=== PATIENT | female | born 1985 | race Caucasian/White ===

== ENCOUNTER 2017-06-08 00:04 | Emergency (ER) | payer MEDICAID ==
[2017-06-08] MEDS: IBUPROFEN 600 MG TABLET PO ONE (00:23)
--- NOTE | 2017-06-08 00:23 | Emergency Department Record ---
History of Present Illness - General Chief complaint: Pain Stated complaint: RIGHT WRIST INJURY Time Seen by Provider: 06/08/17 00:09 Source: Patient Mode of Arrival: Ambulatory Limitations: No limitations - History of Present Illness Initial comments: 31 yo female presents to ED for evaluation of right wrist pain. Patient reports that she was locked out of her home this evening, used her wrist to pound on the door to alert her SO that she was locked out resulting in injury to the wrist. Patient denies other injury, report pain and swelling to the lateral wrist. Patient denies health problems at her baseline, denies taking anything for pain [employer]. MD Complaint: Extremity pain Onset/Timin -: Hour(s) Location: Right, Arm Severity scale (1-10): 9 Quality: Aching, Sharp Consistency: Constant Improves with: Rest Worsens with: Exertion, Palpation - Related Data Home Medications Medication Instructions Recorded Confirmed Last Taken No Home Med [NO HOME MEDS] 06/08/17 06/08/17 Unknown Allergies Allergy/AdvReac Type Severity Reaction Status Date / Time No Known Drug Allergies Allergy Verified 06/08/17 00:07 Travel Screening - Travel/Exposure Within Last 30 Days Have you traveled within the last 30 days?: No - Travel Symptoms Symptom Screening: None Review of Systems Constitutional: Denies: Chills, Fever, Malaise, Night sweats Eyes: Denies: Eye discharge, Eye pain ENT: Denies: Congestion, Ear pain, Epistaxis Respiratory: Denies: Cough, Dyspnea Cardiovascular: Denies: Chest pain, Dyspnea on exertion Endocrine: Denies: Fatigue, Heat or cold intolerance Gastrointestinal: Denies: Abdominal pain, Nausea, Vomiting Genitourinary: Denies: Incontinence, Retention Musculoskeletal: Reports: Arthralgia, Joint swelling. Denies: Back pain, Gout Skin: Denies: Bruising, Change in color Neurological: Denies: Abnormal gait, Confusion, Headache, Seizure Psychiatric: Denies: Anxiety Hematological/Lymphatic: Denies: Anemia, Blood Clots Past Medical History - SOCIAL HISTORY Smoking Status: Current every day smoker - RESPIRATORY Hx Respiratory Disorders: No - CARDIOVASCULAR Hx Cardio Disorders: No - NEURO Hx Neuro Disorders: No - GI Hx GI Disorders: No - Hx Genitourinary Disorders: Yes Comment:: Dysmenorrhea - ENDOCRINE Hx Endocrine Disorders: No - MUSCULOSKELETAL Hx Musculoskeletal Disorders: No - PSYCH Hx Psych Problems: No - HEMATOLOGY/ONCOLOGY Hx Hematology/Oncology Disorders: No Family Medical History Any Significant Family History?: Yes Hx HTN: Father, Mother Hx Kidney Disease: Grandparents *Kidney Comment: Polycystic kidneys Physical Exam - General General Appearance: Alert, Oriented x3, Cooperative, Mild distress, Other (Well appearing, drinking coffee) Limitations: No limitations - Head Head exam: Atraumatic, Normocephalic, Normal inspection Head exam detail: negative: Abrasion, Contusion, Tovar's sign, General tenderness, Hematoma, Laceration - Eye Eye exam: Normal appearance. negative: Conjunctival injection, Periorbital swelling, Periorbital tenderness, Scleral icterus - ENT Ear exam: negative: Auricular hematoma, Auricular trauma Nasal Exam: negative: Active bleeding, Discharge, Dried blood, Foreign body Mouth exam: negative: Drooling, Laceration, Muffled voice, Tongue elevation - Neck Neck exam: Normal inspection. negative: Meningismus, Tenderness - Respiratory Respiratory exam: Normal lung sounds bilaterally. negative: Rales, Respiratory distress, Rhonchi, Stridor - Cardiovascular Cardiovascular Exam: Regular rate, Normal rhythm, Normal heart sounds Peripheral Pulses: 3+: Radial (R) - GI/Abdominal GI/Abdominal exam: Soft. negative: Rebound, Rigid, Tenderness - Rectal Rectal exam: Deferred - exam: Deferred - Extremities Extremities exam: Tenderness, Other (TTP along the lateral right wrist, minimal STS, strong radial pulse, compartments of the forearm are soft on examination.) . negative: Calf tenderness, Pedal edema - Back Back exam: Denies: CVA tenderness (R), CVA tenderness (L) - Neurological Neurological exam: Alert, Normal gait, Oriented X3 - Psychiatric Psychiatric exam: Normal affect, Normal mood - Skin Skin exam: Normal color. negative: Abrasion Type of lesion: negative: abrasion Course - Reevaluation(s) Reevaluation #1: 06/08/17 00:35 Right wrist: No acute fracture Patient was updated on her radiology results, and appears stable for discharge with continued symptomatic care as discussed. Disposition Disposition: Discharge Clinical Impression: Wrist contusion Qualifiers: Encounter type: initial encounter Laterality: right Qualified Code(s): S60.211A - Contusion of right wrist, initial encounter Disposition: Home, Self-Care Condition: (2) Stable Instructions: Contusion in Adults (ED) Additional Instructions: Return to ED if your symptoms worsen or if you have any concerns. Ibuprofen as needed for pain, ice as needed. Follow-up with your family doctor in 3-5 days as directed. Forms: Patient Portal Access Time of Disposition: 00:36 Quality - Quality Measures Quality Measures: N/A - Blood Pressure Screening Does Patient Have Any of the Following: No Blood Pressure Classification: Pre-Hypertensive BP Reading Systolic Measurement: 141 Diastolic Measurement: 83 Screening for High Blood Pressure: < Pre-Hypertensive BP, F/U Documented > [ G8950] Pre-Hypertensive Follow-up Interventions: Referral to alternative/primary care provider.
--- NOTE | 2017-06-09 10:53 | RADIOLOGY REPORT ---
EXAM: RIGHT WRIST HISTORY: RIGHT MEDIAL WRIST PAIN AFTER POUNDING ON A LOCKED DOOR TONIGHT. TECHNIQUE: Three views of the right wrist were obtained. Comparison: None. Encounter: Initial. FINDINGS: No definite fracture or dislocation of the right wrist identified. No prominent focal soft tissue swelling is seen. However, if symptoms persist, a follow-up study in a week or so would be suggested to exclude a currently radiographically occult fracture. IMPRESSION: NO FRACTURE OF THE RIGHT WRIST IDENTIFIED. JOB NUMBER: [id number] [facility]
== END 2017-06-08 00:44 | disposition home or self-care (01) ==
LOC: ER 00:04
DX: S60.211A Contusion of right wrist, initial encounter (principal); F17.210 Nicotine dependence, cigarettes, uncomplicated; W22.8XXA Striking against or struck by other objects, initial encounter; Y92.009 Unspecified place in unspecified non-institutional (private) residence as the place of occurrence of the external cause
CPT/HCPCS: 99283

== ENCOUNTER 2017-06-13 22:58 | Emergency (ER) | payer MEDICAID ==
[2017-06-13] MEDS ORDERED: IBUPROFEN 600 MG TABLET PO ONE (23:38)
--- NOTE | 2017-06-13 23:45 | Emergency Department Record ---
History of Present Illness - General Chief complaint: Extremity Problem Stated complaint: RT WRIST PAIN Time Seen by Provider: 06/13/17 23:33 Source: Patient, Family Mode of Arrival: Ambulatory Limitations: No limitations - History of Present Illness Initial comments: 31 yo female presents with continued right wrist pain from an injury last week. She was hitting a door forcefully after being locked out of her home. She has pain still at the wrist. She was seen last week in the ED and had a negative XR. She states at time the hand feels cool then warm. No weakness or numbness. She is right handed. She works at a [employer] and uses this hand for her job. Complaint: Extremity pain, Joint pain, Joint swelling Onset/Timin -: Week(s) Location: Right History of Same: Yes -: Yes Arthralgia Quality: Aching Consistency: Constant Worsens with: Palpation, Weight bearing Associated Symptoms: Denies other symptoms - Related Data Previous Rx's Medication Instructions Recorded Hydrocodone/Acetaminophen [[place] 1 each PO Q6H #10 tablet 06/14/17 5-325 Tablet] Allergies Allergy/AdvReac Type Severity Reaction Status Date / Time No Known Drug Allergies Allergy Verified 06/08/17 00:07 Travel Screening - Travel/Exposure Within Last 30 Days Have you traveled within the last 30 days?: No - Travel Symptoms Symptom Screening: None Review of Systems Constitutional: Denies: Chills, Fever, Malaise, Weakness Eyes: Denies: Eye discharge ENT: Denies: Congestion, Throat pain Respiratory: Denies: Cough Cardiovascular: Denies: Chest pain, Syncope Endocrine: Denies: Fatigue Gastrointestinal: Denies: Abdominal pain, Diarrhea, Nausea, Vomiting Genitourinary: Denies: Dysuria, Urgency Musculoskeletal: Reports: As per HPI, Arthralgia Skin: Reports: Bruising (ulnar side of the right wrist) Neurological: Denies: Headache, Numbness, Tingling, Tremors, Weakness Psychiatric: Denies: Anxiety Hematological/Lymphatic: Denies: Blood Clots, Easy bleeding, Easy bruising, Swollen glands Past Medical History - SOCIAL HISTORY Smoking Status: Current every day smoker Alcohol Use: Occasional Drug Use: Rare Drug Use Detail:: Marijuana - RESPIRATORY Hx Respiratory Disorders: No - CARDIOVASCULAR Hx Cardio Disorders: No - NEURO Hx Neuro Disorders: No - GI Hx GI Disorders: No - Hx Genitourinary Disorders: Yes Comment:: Dysmenorrhea - ENDOCRINE Hx Endocrine Disorders: No - MUSCULOSKELETAL Hx Musculoskeletal Disorders: No - PSYCH Hx Psych Problems: No - HEMATOLOGY/ONCOLOGY Hx Hematology/Oncology Disorders: No Family Medical History Any Significant Family History?: Yes Hx HTN: Father, Mother Hx Kidney Disease: Grandparents *Kidney Comment: Polycystic kidneys Physical Exam - General General Appearance: Alert, Oriented x3, Cooperative, No acute distress Limitations: No limitations - Head Head exam: Atraumatic, Normal inspection - Eye Eye exam: Normal appearance, PERRL Pupils: Normal accommodation - ENT ENT exam: Normal exam Ear exam: Normal external inspection. negative: External canal tenderness Nasal Exam: Normal inspection. negative: Discharge, Sinus tenderness Mouth exam: Normal external inspection, Tongue normal Teeth exam: Normal inspection Throat exam: Normal inspection - Neck Neck exam: Normal inspection, Full ROM. negative: Tenderness - Respiratory Respiratory exam: negative: Respiratory distress - Cardiovascular Cardiovascular Exam: Regular rate, Normal rhythm, Normal heart sounds Peripheral Pulses: 2+: Radial (R) - Rectal Rectal exam: Deferred - exam: Deferred - Extremities Extremities exam: Normal inspection, Joint swelling, Normal capillary refill ( brisk cap refill with a warm hand and fingers, strong right radial pulse), Tenderness. negative: Full ROM Image of Hand: 1 - mild ulnar side bruising, mild swelling of the wrist, warm skin, intact pulses, tender distal ulna and radius, fingers non swollen, no abnormal wrm - Back Back exam: Reports: Normal inspection, Full ROM. Denies: Muscle spasm, Rash noted, Tenderness - Neurological Neurological exam: Alert, Normal gait, Oriented X3. negative: Motor sensory deficit - Psychiatric Psychiatric exam: Normal affect, Normal mood - Skin Skin exam: Dry, Intact, Normal color, Warm. negative: Abrasion, Cyanosis, Diaphoretic, Mottled, Pallor, Rash Course Vital Signs 06/13/17 23:10 Temperature 98.2 F Pulse Rate [ 76 Pulse Ox Probe] Respiratory 16 Rate Blood Pressure 133/90 [Left Arm] Pulse Ox 100 - Reevaluation(s) Reevaluation #1: ED first visit XR reviewed No acute injury Given the persistent pain the wrist will be re-XR'd. 06/13/17 23:45 06/14/17 02:06 The [facility] XR was negative for acute fracture The patient was splinted for support and comfort We discussed home care and close follow up the pain if it continues Disposition Disposition: Discharge Clinical Impression: Wrist sprain Disposition: Home, Self-Care Condition: (1) Good Instructions: Wrist Sprain (ED) Additional Instructions: Ice the wrist 2-3 times daily Follow up recheck in one week If pain continues you may need additional testing or referral with orthopedics Call the numbers on your insurance card for a new family doctor Use the splint for support and comfort until pain free Prescriptions: Hydrocodone/Acetaminophen [[place] 5-325 Tablet] 1 each PO Q6H #10 tablet Forms: Patient Portal Access Time of Disposition: 01:13 Quality - Quality Measures Quality Measures: N/A - Blood Pressure Screening Does Patient Have Any of the Following: No Blood Pressure Classification: Normal BP Reading Systolic Measurement: 109 Diastolic Measurement: 74 Screening for High Blood Pressure: < Normal BP, F/U Not Required > [G8783]
--- NOTE | 2017-06-15 07:27 | RADIOLOGY REPORT ---
EXAM: RIGHT WRIST HISTORY: WRIST PAIN. TECHNIQUE: Three views of the right wrist were obtained. Comparison: 06/08/17 right wrist. Encounter: Initial. FINDINGS: Negative for fracture or dislocation. The soft tissues are unremarkable. The joint spaces are preserved. IMPRESSION: NEGATIVE RIGHT WRIST EXAMINATION. JOB NUMBER: [id number] [facility]
== END 2017-06-14 01:21 | disposition home or self-care (01) ==
LOC: ER 22:58
DX: S63.502A Unspecified sprain of left wrist, initial encounter (principal); W22.8XXA Striking against or struck by other objects, initial encounter; F17.210 Nicotine dependence, cigarettes, uncomplicated; Y92.009 Unspecified place in unspecified non-institutional (private) residence as the place of occurrence of the external cause
CPT/HCPCS: 99283